=== PATIENT | female | born 1945 | race Caucasian/White ===

== ENCOUNTER → 2016-09-03 | Outpatient (CLI) | payer MEDICARE ==
--- NOTE | 2016-09-03 16:12 | XR ---
EXAMINATION TYPE: XR knee complete RT , 3 VIEWS DATE OF EXAM ORDERED: 09/03/2016 HISTORY: [id number] rt knee injury. COMPARISON: None. FINDINGS: There is mild medial joint space loss. There are remodeling changes in the medial compartm ent as well as the patellofemoral joint. There is chondrocalcinosis present. No joint effusion is see n. No acute osseous lesion is seen. IMPRESSION: OSTEOARTHRITIS.
== END | disposition home or self-care (01) ==
LOC: RADXRYALE 15:45
PROVIDERS: ATTEND Family Medicine
DX: M17.11 Unilateral primary osteoarthritis, right knee (principal)

== ENCOUNTER 2017-07-30 20:03 | Emergency (ER) | payer MEDICARE, OTHER ==
[2017-07-30 20:09] VITALS: RESP 18
--- NOTE | 2017-07-30 20:38 | ED ---
General Adult HPI - General Chief complaint: Fall Stated complaint: Head Laceration Time Seen by Provider: 07/30/17 20:09 Source: family, EMS, RN notes reviewed Mode of arrival: EMS Limitations: altered mental status - History of Present Illness Initial comments: 72-year-old female living in [facility] presents to the emergency department by EMS for a chief complaint of head injury. Patient has a significant history for dementia. Fall was unwitnessed. EMS states they were told that she cried and yelled immediately afterwards and there is no loss of consciousness. Patient is not up-to-date on her tetanus. Family states patient is at her baseline in regards to dementia and alertness. Patient does not answer questions which is normal for her. Patient is on a baby aspirin but no other blood thinners. Patient has no other complaints at this time including shortness of breath, chest pain, abdominal pain, nausea or vomiting, headache, or visual changes. - Related Data Allergies Allergy/AdvReac Type Severity Reaction Status Date / Time No Known Allergies Allergy Verified 07/30/17 20:06 Review of Systems ROS Statement: Those systems with pertinent positive or pertinent negative responses have been documented in the HPI. ROS Other: All systems not noted in ROS Statement are negative. Past Medical History Past Medical History: Dementia History of Any Multi-Drug Resistant Organisms: None Reported Past Surgical History: Cholecystectomy Past Psychological History: No Psychological Hx Reported Smoking Status: Never smoker Past Alcohol Use History: None Reported Past Drug Use History: None Reported General Exam Limitations: altered mental status General appearance: alert, in no apparent distress Head exam: Present: normocephalic, other (There is a 3 cm laceration above the left eye.) Eye exam: Present: normal appearance, PERRL, EOMI. Absent: scleral icterus, conjunctival injection, periorbital swelling, periorbital tenderness ENT exam: Present: normal exam, mucous membranes moist Neck exam: Present: normal inspection. Absent: tenderness, meningismus, lymphadenopathy, thyromegaly Respiratory exam: Present: normal lung sounds bilaterally. Absent: respiratory distress, wheezes, rales, rhonchi, stridor Cardiovascular Exam: Present: regular rate, normal rhythm, normal heart sounds. Absent: systolic murmur, diastolic murmur, rubs, gallop, clicks GI/Abdominal exam: Present: soft, normal bowel sounds. Absent: distended, tenderness, guarding, rebound, rigid Neurological exam: Present: other (Patient does not answer questions. Family states patient is at her baseline mentally. Patient has a history of dementia.) Course Vital Signs 07/30/17 07/30/17 20:06 21:40 Temperature 98.0 F Pulse Rate 64 68 Respiratory 18 18 Rate Blood Pressure 96/58 97/60 O2 Sat by Pulse 100 98 Oximetry Procedures - Procedures Initial comment: Body area: Superior to the left eye Laceration length:3 cm Foreign bodies: no foreign bodies Tendon involvement: none Nerve involvement: none Vascular damage: no Anesthesia: local infiltration Local anesthetic: 4 mL 1% lidocaine Preparation: Patient was prepped and draped in the usual sterile fashion. Irrigation solution: saline Irrigation method:saline jet lavage , iodine Skin closure: 5-0 Ethilon using sterile technique Number of sutures: 9 Technique: interupted Dressing: antibiotic ointment/ gauze Patient tolerance: Patient tolerated the procedure well with no immediate complications. Medical Decision Making - Medical Decision Making Pleasant 72-year-old female with dementia presents for a chief complaint of head injury. Follow was unwitnessed in the senior living. Patient did apparently cry immediately after and there was no loss of consciousness according to EMS. On exam patient does not answer questions due to dementia. No focal neuro deficits. There is a 3 centimeter laceration above the left eye. Family agrees to have CAT scan done. Head CT showed no acute intracranial abnormality. No mass effect or midline shift. No sign of intracranial hemorrhage. No fracture in the C-spine. Wound was cleaned thoroughly and sutured with 8 interrupted sutures. Patient will go back to [facility]. Family was educated on return precautions including those for infection and head trauma. He will follow up with primary care in 1-2 days. They will return in 5 days to have sutures removed. Disposition Clinical Impression: Laceration, Head injury Disposition: HOME SELF-CARE Condition: Good Instructions: Care For Your Stitches (ED), Laceration (ED), Fall Prevention for Older Adults (ED), Head Injury (ED) Additional Instructions: Please monitor for any signs of infection such as spreading redness, drainage or fever and return if these occur. Please also monitor for severe headache, vomiting, or altered mental status and return if these occur. Sutures need to be removed in about 5 days. He may have them removed here or at [facility] if they will do it. Follow up with primary care provider in one to 2 days. Is patient prescribed a controlled substance at d/c from ED?: No Referrals: Archie Mendoza MD [Primary Care Provider] - 1-2 days Time of Disposition: 22:18
--- NOTE | 2017-07-30 21:11 | CT ---
EXAMINATION TYPE: CT brain jostin guzman DATE OF EXAM: 07/30/2017 COMPARISON: NONE HISTORY: Left supraorbital laceration after fall. Altered mental status. CT DLP: 1513 mGycm Automated exposure control for dose reduction was used. TECHNIQUE: CT scan of the head and cervical spine are performed without contrast. FINDINGS: There is cerebral cortical atrophy. There is no mass effect nor midline shift. There is n o sign of intracranial hemorrhage. The calvarium is intact. There is mucosal thickening in the ethmoi d and maxillary sinuses. Cervical vertebra show mild straightening. There is degenerative disc space narrowing from C3 to T1. There is no evidence of a fracture. There is mild facet arthropathy. Skull base is intact. There is a nterior spur formation. IMPRESSION: Cerebral atrophy. No acute intracranial abnormality. Sinusitis. There is significant progression of t he atrophy compared to 11/21/2005. Spondylotic changes in the cervical spine. No fracture.
[2017-07-30 21:40] VITALS: BP 97/60; PULSE 68; TEMP 98
[2017-07-30] MEDS ORDERED: DIPH,PERTUS(ACELL)TETVAC-LF 0.5 ML VIAL IM ONE (22:12)
== END 2017-07-30 22:50 | disposition home or self-care (01) ==
LOC: EC 20:03
DX: S01.81XA Laceration without foreign body of other part of head, initial encounter (principal); R41.82 Altered mental status, unspecified; F03.90 Unspecified dementia, unspecified severity, without behavioral disturbance, psychotic disturbance, mood disturbance, and anxiety; Z79.82 Long term (current) use of aspirin; Z23 Encounter for immunization; W19.XXXA Unspecified fall, initial encounter
CPT/HCPCS: 12013; 70450; 72125; 90471; 90715; 99284